=== PATIENT | male | born 1995 | race Caucasian/White ===

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

== ENCOUNTER 2018-09-14 10:24 | Emergency (ER) | payer OTHER ==
[2018-09-14 10:39] VITALS: BP 126/67
--- NOTE | 2018-09-14 10:47 | UC ---
UC General HPI - HPI Summary HPI Summary: day 2 of headache, fever, body aches, congestion and scratchy throat. + asthma. no sob or wheezing. - History of Current Complaint Chief Complaint: UCRespiratory Stated Complaint: FLU SX'S Time Seen by Provider: 09/14/18 10:37 Hx Obtained From: Patient Timing: Constant Pain Intensity: 7 Associated Signs & Symptoms: Negative: Diarrhea, Vomiting - Allergy/Home Medications Allergies/Adverse Reactions: Allergies Allergy/AdvReac Type Severity Reaction Status Date / Time No Known Allergies Allergy Verified 09/14/18 10:32 PMH/Surg Hx/FS Hx/Imm Hx Respiratory History: Asthma - Surgical History Surgical History: Yes Surgery Procedure, Year, and Place: GASTROSCOPE FOR REMOVAL SUB-LIMINAL LESION OF HIS STOMACH - 2017 - Family History Known Family History: Negative: Blood Disorder - Social History Occupation: Student Alcohol Use: None Substance Use Type: None Smoking Status (MU): Never Smoked Tobacco - Immunization History Most Recent Influenza Vaccination: [id number] Vaccination Up to Date: Yes Review of Systems All Other Systems Reviewed And Are Negative: Yes Constitutional: Positive: Fever, Chills Skin: Positive: Negative Eyes: Positive: Negative ENT: Positive: Sore Throat, Sinus Congestion Respiratory: Positive: Cough Cardiovascular: Positive: Negative Gastrointestinal: Positive: Nausea Genitourinary: Positive: Negative Motor: Positive: Negative Neurovascular: Positive: Negative Musculoskeletal: Positive: Myalgia Neurological: Positive: Headache Psychological: Positive: Negative Physical Exam Triage Information Reviewed: Yes Appearance: Well-Appearing Vital Signs: Initial Vital Signs Temp 98.9 F 09/14/18 10:33 Pulse 80 09/14/18 10:33 Resp 15 09/14/18 10:33 BP 126/67 09/14/18 10:33 Pulse Ox 98 09/14/18 10:33 Vital Signs Reviewed: Yes Eyes: Positive: Conjunctiva Clear ENT: Positive: Pharyngeal erythema - slight, TMs normal. Negative: Nasal drainage, Sinus tenderness Neck: Positive: Supple, Nontender, No Lymphadenopathy Respiratory: Positive: Lungs clear, No respiratory distress, Decreased breath sounds Cardiovascular: Positive: RRR, No Murmur Abdomen Description: Positive: Nontender, No Organomegaly, Soft Bowel Sounds: Positive: Present Musculoskeletal: Positive: ROM Intact Neurological: Positive: Alert Psychological: Positive: Age Appropriate Behavior Skin Exam: Normal Diagnostics - Laboratory Diagnostic Studies Completed/Ordered: rapid flu=neg Course/Dx - Course Course Of Treatment: pt declined strep screen - Differential Dx - Multi-Symptom Differential Diagnoses: Other - rapid flu neg; however, s/s's c/w local influenza. will tx tamiflu due to hx of asthma. no concern for pneumonia. - Diagnoses Provider Diagnosis: Influenza-like illness Discharge - Sign-Out/Discharge Documenting (check all that apply): Patient Departure All imaging exams completed and their final reports reviewed: No Studies - Discharge Plan Condition: Stable Disposition: HOME Prescriptions: Oseltamivir CAP* [Tamiflu CAP*] 75 mg PO BID 5 Days #10 cap Patient Education Materials: Influenza (ED) Forms: *School Release Referrals: ANA PAULA LOPEZ [, APPLICATION, OTHER] - Additional Instructions: FOLLOW UP IF NOT BETTER IN 5-7 DAYS OR SOONER IF WORSE. - Billing Disposition and Condition Condition: STABLE Disposition: Home
[2018-09-14 11:02] LABS: Influenza A Molecular NEGATIVE (Negative); Influenza B Molecular NEGATIVE (Negative)
[2018-09-14] MEDS ORDERED: Oseltamivir CAP* 75 MG CAP PO ONE (11:10)
== END 2018-09-14 11:26 | disposition home or self-care (01) ==
LOC: UCCORT 10:24
DX: J11.1 Influenza due to unidentified influenza virus with other respiratory manifestations (principal); J45.909 Unspecified asthma, uncomplicated
CPT/HCPCS: 99212; A9270-GY; G0463

== ENCOUNTER 2019-10-03 16:46 | Emergency (ER) | payer OTHER ==
[2019-10-03 17:31] VITALS: BP 122/61
--- NOTE | 2019-10-03 17:56 | UC ---
Nausea/Vomiting/Diarrhea HPI - HPI Summary HPI Summary: 23yo male presenting with nausea and vomiting since yesterday afternoon. Patient states he threw up once yesterday and once this morning after eating. Patient states he tried to have soup today and that is when he threw up. States he did have taco curiel yesterday and first emesis came a few hours later. Denies diarrhea. States he has ada-umbilical pain "mostly just if he eats." States pain is lessened if not eating. Describes pain as "just uncomfortable." States fluids do not exacerbate symptoms and he is keeping hydrated. Denies current nausea. Denies any fever, chills, or body aches. Denies URI symptoms and cough. - History of Current Complaint Chief Complaint: UCAbdominalPain Stated Complaint: VOMITING/ZAPATA Pain Intensity: 4 - Allergies/Home Medications Allergies/Adverse Reactions: Allergies Allergy/AdvReac Type Severity Reaction Status Date / Time No Known Allergies Allergy Verified 10/03/19 17:32 Home Medications: Home Medications Ondansetron ODT TAB* [Zofran 4 MG Odt TAB*] 4 mg PO Q6H PRN #12 tab.odt [Rx] PMH/Surg Hx/FS Hx/Imm Hx - Surgical History Surgical History: Yes Surgery Procedure, Year, and Place: GASTROSCOPE FOR REMOVAL SUB-LIMINAL LESION OF HIS STOMACH - 2016 - Family History Known Family History: Negative: Blood Disorder - Social History Alcohol Use: Weekly Alcohol Amount: weekends 6 beers max Substance Use Type: None Smoking Status (MU): Former Smoker - Immunization History Most Recent Influenza Vaccination: [id number] Vaccination Up to Date: Yes Physical Exam Vital Signs: Initial Vital Signs Temp 98.5 F 10/03/19 17:16 Pulse 62 10/03/19 17:16 Resp 18 10/03/19 17:16 BP 122/61 10/03/19 17:16 Pulse Ox 98 10/03/19 17:16 Naus/Vom/Diarrhea Course/Dx - Differential Dx/Diagnosis Condition At Discharge: Stable Discharge ED - Discharge Plan Condition: Stable Disposition: HOME Prescriptions: Ondansetron ODT TAB* [Zofran 4 MG Odt TAB*] 4 mg PO Q6H PRN #12 tab.odt PRN Reason: Nausea/Vomiting Patient Education Materials: Acute Nausea and Vomiting (ED), Acute Abdominal Pain (ED) Forms: *School Release Referrals: No Primary Care Phys,NOPCP [Primary Care Provider] - Additional Instructions: Take the zofran as prescribed for your nausea and vomiting. Get plenty of rest and fluids. You may take tylenol as directed for pain relief. Eat a bland diet, such as bread, bananas, and rice as tolerated while symptoms are present. Go to the emergency room if your symptoms persist or you develop fever, excessive vomiting, severe abdominal pain, or you are unable to keep fluids down. - Billing Disposition and Condition Condition: STABLE Disposition: Home
== END 2019-10-03 18:04 | disposition home or self-care (01) ==
LOC: UCCORT 16:46
DX: R11.2 Nausea with vomiting, unspecified (principal); R19.7 Diarrhea, unspecified; R51 Headache; R10.33 Periumbilical pain; Z87.891 Personal history of nicotine dependence
CPT/HCPCS: 99212; G0463